=== PATIENT | female | born 1980 | race Caucasian/White ===

== ENCOUNTER → 2019-06-12 13:07 | Outpatient (REF) | payer BC, SELFPAY | LOC: CVS 13:07 | PROVIDERS: Family Provider Student in an Organized Health Care Education/Training Program; PCP Student in an Organized Health Care Education/Training Program; Referring Provider Student in an Organized Health Care Education/Training Program; Visit Provider Student in an Organized Health Care Education/Training Program | DX: R00.2 Palpitations (principal) | CPT/HCPCS: 93270 ==

== ENCOUNTER 2021-11-17 09:07 | Outpatient (CLI) | payer BC, SELFPAY ==
[2021-11-17 10:25] LABS: Internal QC Validated? YES +Cl - CLEAR BKGD; Pregnancy, Serum, hCG Quali. NEGATIVE Negative
[2021-11-17 10:30] LABS: Hemoglobin 13.3 g/dL (12.0-15.0); Mean Corp Hgb Conc 33.3 g/dL (32-36); Mean Corpuscular Hgb 33.1 pg (27.0-32.0); Mean Corpuscular Volume 99.5 fL (81-99); Platelet Count 209 K/mm3 (150-450); RBC Distribution Width CV 11.8 % (11.6-14.6); RBC Distribution Width SD 43.1 fl (35.1-43.9); Red Blood Count 4.02 M/mm3 (4.2-5.4); White Blood Count 6.9 K/mm3 (4.4-11.0)
[2021-11-17 10:36] LABS: ALB/GLOB Ratio 1.3 RATIO (0.9-2.4); AST(SGOT) 13 U/L (15-37); Alanine Aminotransfer ALT/SGPT 20 U/L (13-56); Albumin, Serum 3.9 g/dL (3.2-5.0); Alkaline Phosphatase 36 U/L (45-117); Anion Gap 6 (5-15); BUN 14 mg/dL (7-18); BUN/Creat Ratio 18.8 RATIO (10-20); Chloride 106 mmol/L (98-107); Creatinine, Serum 0.74 mg/dL (0.55-1.02); EST Glomerular Filtration Rate 92 mL/min (>60); Est Glom Filt Rate - Afr Amer 112 mL/min (>60); Globulin 3.1 g/dL (2.2-4.2); Glucose 90 mg/dL (74-106); Sodium Level 141 mmol/L (136-145)
== END 2021-11-17 23:59 | disposition home or self-care (01) ==
PROVIDERS: PCP Student in an Organized Health Care Education/Training Program; Referring Provider Nurse Practitioner Family; Visit Provider Nurse Practitioner Family
DX: R00.0 Tachycardia, unspecified (principal); R00.2 Palpitations; R07.9 Chest pain, unspecified
CPT/HCPCS: 36415; 80053; 84703; 85027; 93660; J7040; A4216

== ENCOUNTER 2021-11-24 11:00 | Outpatient (CLI) | payer BC, SELFPAY ==
--- NOTE | 2021-11-24 11:17 | ECHOD_ITS ---
Reason For Study: Tachycardia, Palpitations Procedure This was a 2D Doppler, Color Flow transthoracic echocardiogram. The study was technically difficult. Exam performed in department. Left Ventricle Normal LV size. Left ventricular systolic function is normal. The estimated ejection fraction is 65 %. No evidence for diastolic dysfunction. No regional wall motion abnormalities noted. Right Ventricle Normal RV size. Normal systolic function. Atria Normal left atrium. Normal right atrium. No doppler evidence for ASD. Mitral Valve There is no mitral annular calcification. Normal mitral valve. Trivial eccentric mitral valve insufficiency. Tricuspid Valve Normal tricuspid valve. Trivial tricuspid valve insufficiency. Right ventricular systolic pressure estimated to be 18 mmHg. Aortic Valve Trisinus/trileaflet aortic valve. Normal aortic valve. Pulmonic Valve The pulmonic valve is not well visualized. Trivial pulmonic valve insufficiency. Great Vessels Normal sized aortic root. Pericardium/Pleural No pericardial effusion. MMode/2D Measurements & Calculations LVIDd: 4.3 cm IVSd: 0.73 cm Ao root diam: 2.3 cm LVIDs: 2.5 cm LVPWd: 0.73 cm FS: 42.9 % LAV(MOD-bp): 20.8 ml LVAd ap4: 26.5 cm2 SV(MOD-sp4): 50.0 ml LAV(MOD-bp) Indexed: 11.7 ml/m2 LVLd ap4: 7.8 cm LAV(MOD-sp2): 27.2 ml EDV(MOD-sp4): 76.0 ml LAV(MOD-sp4): 14.3 ml EDV(sp4-el): 76.4 ml LVAs ap4: 13.6 cm2 LVLs ap4: 6.4 cm ESV(MOD-sp4): 26.0 ml ESV(sp4-el): 24.8 ml EF(MOD-sp4): 65.8 % EF(sp4-el): 67.6 % SV(sp4-el): 51.6 ml LA A4 area: 8.4 cm2 LA dimension(2D): 2.9 cm RA A4 area: 6.7 cm2 Doppler Measurements & Calculations MV E max jimmy: 89.8 cm/sec Lat Peak E' Jimmy: 16.3 cm/sec Med Peak E' Jimmy: 13.8 cm/sec MV A max jimmy: 57.8 cm/sec E/E' lat: 5.5 E/E' med: 6.5 MV E/A: 1.6 Ao V2 max: 104.2 cm/sec LV V1 max: 86.1 cm/sec PA V2 max: 80.9 cm/sec Ao max P.3 mmHg LV V1 max P.0 mmHg Ao V2 mean: 73.6 cm/sec Ao mean P.4 mmHg Ao V2 VTI: 21.7 cm TR max jimmy: 192.1 cm/sec TR max P.8 mmHg ECHO/Echo Complete Interpretation Summary The study was technically difficult. Left ventricular systolic function is normal. The estimated ejection fraction is 65 %. Trivial eccentric mitral valve insufficiency. Trivial tricuspid valve insufficiency. Trivial pulmonic valve insufficiency. Right ventricular systolic pressure estimated to be 18 mmHg. No evidence for diastolic dysfunction. Ordering Physician: Ashley Paiz Referring Physician: Nas Jack Performed By: Dee Freedman, LINETTE, RVT
--- NOTE | 2021-11-28 15:29 | STRESSREP ---
Stress Test Report Resting EKG demonstrates normal sinus rhythm with a rate of 73 bpm normal intervals are noted. The resting blood pressure is 108/76 mmHg. 41-year-old lady with a history of chest pain. Stress protocol: Exercise The patient exercised according to the regular Gokul protocol 108/76 mmHg. was 190 bpm which was 104% of max impact at heart rate the maximum workload for a was 11.7 metabolic equivalents.total duration of 9 minutes and 30 seconds. The maximum heart rate attained and the target heart rate being achieved. The peak blood pressure was 182/62 mmHg. Patient completed 30 seconds into stage IV of the Gokul protocol. The test was terminated due to dyspnea. No clinical angina was noted. Conclusion: Exercise stress test with no EKG changes for ischemia at a high workload. Excellent functional aerobic capacity. No clinical angina.
--- NOTE | 2021-11-28 15:34 | PCM.TILTTABL ---
Summary Pre Test Resting HR: 86 Pre Test Resting BP: 119/78 Minimum Test HR: 86 Maximum Test HR: 125 Minimum Test BP: 104/73 Maximum Test BP: 118/77 Physician Tilt Table Report Patient's Physicians Primary Care Physician: Nas Jack Indications/Diagnosis: Tachycardia and palpitations Procedure Comments: The patient was brought to the noninvasive cardiac lab in the postabsorptive state. Initial EKG demonstrated normal sinus rhythm with a rate of 86 bpm, and a blood pressure of 109/65 mmHg. The patient was then placed on the tilt table and positioned in the 70 degree upright tilt table position. Continuous EKG as well as heart rate and blood pressure measurements were obtained. After approximately 30 minutes in this position the patient was noted to demonstrate a stable blood pressure as well as heart rate with no significant symptom change. The patient was then placed back in the recumbent position and the test ended. Summary: Tilt table test with no significant hemodynamic changes noted.
[2021-11-28 15:38] VITALS: BP 104/73; BP 118/77; BP 119/78
== END 2021-11-24 23:59 | disposition home or self-care (01) ==
LOC: CVS 11:06
PROVIDERS: PCP Student in an Organized Health Care Education/Training Program; Referring Provider Nurse Practitioner Family; Visit Provider Nurse Practitioner Family
DX: R00.0 Tachycardia, unspecified (principal); R00.2 Palpitations; R07.9 Chest pain, unspecified
CPT/HCPCS: 93017; 93306